=== PATIENT | male | born 1985 | race Two or more races ===

== ENCOUNTER 2020-08-25 07:21 | Emergency (ER) | payer SELFPAY ==
[2020-08-25 07:40] VITALS: BP 126/77; PULSE 83; TEMP 98.5; BMI 21.9
[2020-08-25] MEDS ORDERED: ACETAMINOPHEN 325 MG TABLET (FP) PO ONE (08:31)
[2020-08-25] MEDS ORDERED: ACETAMINOPHEN 325 MG TABLET (FP) ONE (08:42)
== END 2020-08-25 08:50 | disposition home or self-care (01) ==
LOC: JER 07:21
DX: Z20.822 Contact with and (suspected) exposure to COVID-19 (principal)
CPT/HCPCS: 99283-25; C9803; U0003

== ENCOUNTER 2023-04-18 15:56 | Emergency (ER) | payer SELFPAY ==
[2023-04-18 16:34] VITALS: BP 117/83; PULSE 80; RESP 17; TEMP 98.7; BMI 20.9
== END 2023-04-18 18:36 | disposition left against medical advice (07) ==
LOC: JERFT 15:56
DX: Z77.120 Contact with and (suspected) exposure to mold (toxic) (principal)
CPT/HCPCS: 99281-25